=== PATIENT | female | born 1985 | race Caucasian/White ===

== ENCOUNTER → 2020-09-18 | Outpatient (CLI) | payer OTHER ==
[2020-09-18 17:15] LABS: HEMOGLOBIN 12.7 gm/dl (12.3-15.3); RED BLOOD COUNT 4.37 M/UL (4.00-5.10); WHITE BLOOD COUNT 4.2 K/UL (4.5-11.0)
[2020-09-18 17:45] LABS: BUN/CREATININE RATIO 10 (0-10)
== END ==
LOC: US 08:35
PROVIDERS: Physician Assistant
DX: E07.9 Disorder of thyroid, unspecified (principal); E04.1 Nontoxic single thyroid nodule; R53.83 Other fatigue
CPT/HCPCS: 36415; 76536; 80053; 84443; 85025

== ENCOUNTER 2021-03-05 11:13 | Emergency (ER) | payer OTHER ==
[2021-03-05 12:09] LABS: HEMOGLOBIN 12.5 gm/dl (12.3-15.3); RED BLOOD COUNT 4.47 M/UL (4.00-5.10)
[2021-03-05 12:29] LABS: BUN/CREATININE RATIO 15 (0-10)
[2021-03-05] MEDS ORDERED: CEFDINIR300 MG PO (13:59)
== END 2021-03-05 14:05 | disposition home or self-care (01) ==
LOC: ER1 11:13
PROVIDERS: Physician Assistant
DX: N39.0 Urinary tract infection, site not specified (principal)
CPT/HCPCS: 76705; 80053; 81001; 82550; 82553; 83690; 84703; 85025; 87086; 99284

== ENCOUNTER → 2021-07-17 15:06 | Emergency (ER) | payer OTHER ==
[~2021-07-17 15:06] MED LIST: CEFDINIR300 MG PO
== END | disposition left against medical advice (07) ==
LOC: ER1 15:06
DX: Z53.21 Procedure and treatment not carried out due to patient leaving prior to being seen by health care provider (principal)

== ENCOUNTER 2021-07-19 11:41 | Emergency (ER) | payer OTHER ==
[2021-07-19 12:23] LABS: HEMOGLOBIN 10.9 gm/dl (12.3-15.3); RED BLOOD COUNT 3.89 M/UL (4.00-5.10); WHITE BLOOD COUNT 4.4 K/UL (4.5-11.0)
[2021-07-19 12:46] LABS: BUN/CREATININE RATIO 9 (0-10)
== END 2021-07-19 15:15 | disposition home or self-care (01) ==
LOC: ER1 11:41
PROVIDERS: Nurse Practitioner
DX: N93.9 Abnormal uterine and vaginal bleeding, unspecified (principal)
CPT/HCPCS: 76830; 80053; 81001; 84703; 85025; 99284

== ENCOUNTER 2021-07-28 14:32 | Emergency (ER) | payer OTHER ==
[2021-07-28 15:22] LABS: HEMOGLOBIN 8.1 gm/dl (12.3-15.3); RED BLOOD COUNT 2.95 M/UL (4.00-5.10); WHITE BLOOD COUNT 5.1 K/UL (4.5-11.0)
[2021-07-28 15:29] LABS: BUN/CREATININE RATIO 14 (0-10)
[2021-07-28] MEDS ORDERED: PROVERA10 MG PO (19:03)
[2021-07-28] MEDS ORDERED: TORADOL 10 MG T10 MG PO (19:03)
== END 2021-07-28 19:34 | disposition home or self-care (01) ==
LOC: ER1 14:32
PROVIDERS: Physician Assistant
DX: N93.9 Abnormal uterine and vaginal bleeding, unspecified (principal); D64.9 Anemia, unspecified; G40.909 Epilepsy, unspecified, not intractable, without status epilepticus; R10.2 Pelvic and perineal pain; R42 Dizziness and giddiness
CPT/HCPCS: 76830; 80053; 81001; 84703; 85025; 96372; 99284; J1885